=== PATIENT | female | born 1985 | race Caucasian/White ===

== ENCOUNTER 2016-05-09 15:04 | Emergency (ER) | payer OTHER ==
[2016-05-09 15:47] LABS: BASO % 0.3 % (0.1-1.2); EOS % 0.5 % (0.7-5.8); GRAN # 6.6 10_X3_uL (1.6-6.1); GRAN % 76.6 % (34.0-71.1); HEMATOCRIT 37.6 % (34-45); LYMPH # 1.6 10_X3_uL (1.2-3.7); MEAN CORPUSCULAR HEMOGLOBIN 22.9 pg (27.0-33.0); MEAN CORPUSCULAR HGB CONC 31.9 g/dL (32.0-36.0); MEAN CORPUSCULAR VOLUME 71.6 fL (79-95); MONO # 0.4 10_X3_uL (0.2-0.9); MONO % 4.6 % (4.7-12.5); PLATELET COUNT 364 x10_3/uL (182-369); RED BLOOD COUNT 5.25 x10_6/uL (3.9-5.2); RED CELL DISTRIBUTION WIDTH 17.3 % (11.7-14.4); WHITE BLOOD COUNT 8.6 x10_3/uL (4.0-10.0)
[2016-05-09 15:58] LABS: BLOOD UREA NITROGEN 11 mg/dL (7-18); CALCIUM 9.3 mg/dL (8.7-10.7); CARBON DIOXIDE 26 mmol/L (21-32); CREATININE 0.5 mg/dL (0.6-1.3); GLUCOSE,RANDOM 93 mg/dL (70-99); POTASSIUM 4.4 mmol/L (3.5-5.1); SODIUM 138 mmol/L (136-145)
[2016-05-09 16:05] LABS: FREE T4 1.17 ng/dL (0.93-1.7); THYROID STIMULATING HORMONE 2.98 uIU/mL (0.34-4.82)
== END 2016-05-09 17:01 | disposition home or self-care (01) ==
LOC: ER 15:04
PROVIDERS: Internal Medicine
DX: R11.0 Nausea (principal); R53.1 Weakness; E89.0 Postprocedural hypothyroidism; Z85.850 Personal history of malignant neoplasm of thyroid; Z79.891 Long term (current) use of opiate analgesic; Z79.899 Other long term (current) drug therapy; Z88.8 Allergy status to other drugs, medicaments and biological substances
CPT/HCPCS: 36415; 80048; 84439; 84443; 85025; 99283